=== PATIENT | male | born 1975 | race Caucasian/White ===

== ENCOUNTER 2016-02-15 21:18 | Emergency (ER) | payer OTHER ==
[~2016-02-15] VITALS: Ht 175.3 cm; Wt 81.5 kg
[~2016-02-15 21:18] MED LIST: NYST1000 PO; ONDA4TAB8 PO; ORA20G7 BU; PHEN-537 PO
[2016-02-15 21:20] VITALS: Ht 175.3 cm; Wt 81.5 kg
[2016-02-15 22:45] LABS: URINE BLOOD (Dip) POC Trace-lysed (NEGATIVE)
[2016-02-15] MEDS ORDERED: CLOT30CR24 TOP (23:25)
[2016-02-15] MEDS ORDERED: FLUC150T17 PO (23:25)
--- NOTE | 2016-02-15 23:32 | ERD ---
ER Documentation Chief Complaint Date/Time DATE: 02/15/16 TIME: 23:28 Chief Complaint dysuria x 2 weeks, on ABT but denies improvement HPI 40-year-old male presents to emergency department for complaints of dysuria for the last 2 weeks already, patient was seen by primary care doctor 4 days ago, was given prescription for antibiotics, Bactrim DS to help with the symptoms but it has not been helping. Patient describes the pain upon urination as sharp pain mostly on the tip of the penile area. Patient did not notice some penile discharge. Patient does not have any new sexual partner, is sexually active with for years already. Patient does not have any penile discharge. Patient does not have any flank pain. Patient does not have any abdominal pain. Patient does not have any gross hematuria. ROS All systems reviewed and are negative except as per history of present illness. Medications Home Meds Active Scripts Clotrimazole* (Clotrimazole* AF) 1% - 30 Gm Cream.gm., 1 APPLIC TOP BID for 7 Days, TUB Prov:CELIA PACHECO NP 02/15/16 Fluconazole* (Diflucan*) 150 Mg Tablet, 150 MG PO ONCE, #1 TAB Prov:CELIA PACHECO NP 02/15/16 Phenazopyridine Hcl* (Pyridium*) 100 Mg Tab, 100 MG PO TID, #15 TAB Prov:LULA OTTO PA-C 01/22/16 Benzocaine* (Orajel Maximum*) 1 Applic Gel, 1 APPLIC BU BID, #30 EA Prov:JOSE DEL RIO PA-C 10/05/14 Nystatin (Nystatin) 100,000 Unit/1 Ml Oral.susp, 4 ML PO QID for 2 Days, ML Prov:GUME STACK 10/03/14 Ondansetron Hcl* (Zofran*) 4 Mg Tablet, 4 MG PO Q6H for NAUSEA AND/OR VOMITING, #30 TAB Prov:GUME STACK 10/03/14 Allergies Allergies: Coded Allergies: No Known Allergy (Unverified , 06/09/14) PMhx/Soc Medical and Surgical Hx: pt denies Medical Hx, pt denies Surgical Hx History of Surgery: No Anesthesia Reaction: No Hx Neurological Disorder: No Hx Respiratory Disorders: No Hx Cardiac Disorders: No Hx Psychiatric Problems: No Hx Miscellaneous Medical Probl: No Hx Alcohol Use: Yes (OCC) Hx Substance Use: No Hx Tobacco Use: No Smoking Status: Never smoker FmHx Family History: No coronary disease, No diabetes, No other Physical Exam Vitals Vital Signs Date Time Temp Pulse Resp B/P Pulse Ox O2 Delivery O2 Flow Rate FiO2 02/15/16 21:20 97.9 102 20 134/92 99 Physical Exam GENERAL: The patient is well developed and appropriate for usual state of health, in no apparent distress. CHEST: Clear to auscultation bilaterally. There are no rales, wheezes or rhonchi. HEART: Regular rate and rhythm. No murmurs, clicks, rubs or gallops. No S3 or S4. ABDOMEN: Soft, nontender and nondistended. Good bowel sounds. No rebound or guarding. No gross peritonitis. No gross organomegaly or masses. No Castañeda sign or McBurney point tenderness. BACK: No midline or flank tenderness. EXTREMITIES: Equal pulses bilaterally. There is no peripheral clubbing, cyanosis or edema. No focal swelling or erythema. Full range of motion. Grossly neurovascularly intact. NEURO: Alert and oriented. Cranial nerves 2-12 intact. Motor strength in all 4 extremities with 5/5 strength. Sensation grossly intact. Normal speech and gait. SKIN: There is no apparent rash or petechia. The skin is warm and dry. HEMATOLOGIC AND LYMPHATIC: There is no evidence of excessive bruising or lymphedema. No gross cervical, axillary, or inguinal lymphadenopathy. : Noted some tenderness on palpation on the tip of the penile area, no penile discharge noted, no scrotal swelling, scrotal tenderness or scrotal redness noted. No lesions noted. Results 24 hrs Laboratory Tests Test 02/15/16 22:44 Bedside Urine Blood Trace-lysed Bedside Urine Glucose (UA) Negative Bedside Urine Ketones (LAB) Negative Bedside Urine Leukocyte Esterase (L Negative Bedside Urine Nitrite (LAB) Negative Bedside Urine Protein (LAB) Negative Bedside Urine pH (LAB) 7.0 Urine GC chlamydia was sent. Procedures/MDM Medical decision making: Patient's dysuria is nonspecific at this time there is some redness on the tip of the penile area. It consistent with balanitis, can be causing the dysuria also. Patient's urine test shows trace of blood, does not have any leukocytes, urine culture was sent to the laboratory. GC chlamydia testing was sent for further evaluation of symptoms. Patient was advised to see a urologist specialist if this continues to persist. Patient was given for Diflucan, clotrimazole, is advised to continue taking the Bactrim DS given to him by , patient is advised to return to emergency department for any worsening symptoms. Departure Diagnosis: Primary Impression: Balanitis Condition: Stable Patient Instructions: Balanitis, Dysuria, Uncertain Cause (Adult) CELIA PACHECO NP Feb 15, 2016 23:32
== END 2016-02-15 23:43 | disposition home or self-care (01) ==
LOC: FTE 21:18
DX: N48.1 Balanitis (principal)
CPT/HCPCS: 81003; 87086; 87591; Z7502; 99283

== ENCOUNTER 2016-05-09 09:44 | Emergency (ER) | payer OTHER ==
[~2016-05-09] VITALS: Ht 177.8 cm; Wt 81.5 kg
[~2016-05-09 09:44] MED LIST changes: +CLOT30CR24 TOP; +FLUC150T17 PO
[2016-05-09 10:06] VITALS: Ht 177.8 cm; Wt 81.5 kg
--- NOTE | 2016-05-09 11:18 | ERD ---
ER Documentation Chief Complaint Date/Time DATE: 05/09/16 TIME: 11:10 Chief Complaint ear pain/pressure x 2 days HPI 40-year-old male presents the emergency department for bilateral ear pain and pressure 2 days. Patient states he has had this problem before and has chronic tinnitus. Patient states in the last 2 days he has had increased tinnitus and pressure to bilateral ears. Patient is unsure if he has an infection. No fevers. No otorrhea. No cough, sore throat, chest pain or difficulty breathing. 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 Patient has been to his primary care provider and ENT for chronic ear pressure and tinnitus. Patient believes he has an upcoming appointment with ENT. Patient states he is having some increased anxiety. Patient states he has increased stress from being out of work. At times he is having difficulty breathing and chest pressure. Currently denies any chest pressure, heart palpitations, labored breathing. Patient states he has a history of hypertension but was told to increase exercise and reduce salt in his diet for treatment. Patient is not currently taking any medications for this. ROS All systems reviewed and are negative except as per history of present illness. Medications Home Meds Active Scripts Clotrimazole* (Clotrimazole* AF) 1% - 30 Gm Cream.gm., 1 APPLIC TOP BID for 7 Days, TUB Prov:CELIA PACHECO NP 02/15/16 Fluconazole* (Diflucan*) 150 Mg Tablet, 150 MG PO ONCE, #1 TAB Prov:CELIA PACHECO NP 02/15/16 Phenazopyridine Hcl* (Pyridium*) 100 Mg Tab, 100 MG PO TID, #15 TAB Prov:LULA OTTO PA-C 01/22/16 Benzocaine* (Orajel Maximum*) 1 Applic Gel, 1 APPLIC BU BID, #30 EA Prov:JOSE DEL RIO PA-C 10/05/14 Nystatin (Nystatin) 100,000 Unit/1 Ml Oral.susp, 4 ML PO QID for 2 Days, ML Prov:GUME STACK 10/03/14 Ondansetron Hcl* (Zofran*) 4 Mg Tablet, 4 MG PO Q6H for NAUSEA AND/OR VOMITING, #30 TAB Prov:GUME STACK 10/03/14 Allergies Allergies: Coded Allergies: No Known Allergy (Unverified , 06/09/14) PMhx/Soc History of Surgery: No Anesthesia Reaction: No Hx Neurological Disorder: No Hx Respiratory Disorders: No Hx Cardiac Disorders: No Hx Psychiatric Problems: No Hx Miscellaneous Medical Probl: No Hx Alcohol Use: Yes (OCC) Hx Substance Use: No Hx Tobacco Use: No Physical Exam Vitals Vital Signs Date Time Temp Pulse Resp B/P Pulse Ox O2 Delivery O2 Flow Rate FiO2 05/09/16 10:06 97.8 100 18 135/90 99 Physical Exam Const: alert, oriented to person, place and time Head: Atraumatic Eyes: Normal Conjunctiva ENT: Normal External Ears, Nose and Mouth. Neck: Full range of motion..~ No meningismus. Resp: Clear to auscultation bilaterally Cardio: Regular rate and rhythm, no murmurs Abd: Soft, non tender, non distended. Normal bowel sounds Skin: No petechiae or rashes Back: No midline or flank tenderness Ext: No cyanosis, or edema Neur: Awake and alert Psych: Normal Mood and Affect Procedures/MDM ED COURSE: The patient was stable throughout ED course. I kept the patient and/or family informed of laboratory and diagnostic imaging results throughout the ED course. Imaging Chest x-ray Patient: JOS BLANK : 1975 Age: 40 Sex: M MR #: [id number] DOS: 05/09/16 1035 Ordering MD: SARAH FOX NP Location: [facility] Room/Bed: PROCEDURE: XR Chest AP portable CLINICAL INDICATION: Chest tightness TECHNIQUE: An AP portable radiograph of the chest was submitted. COMPARISON: None. FINDINGS: Support Hardware: None Cardiovascular: The cardiovascular silhouette appears unremarkable. Lung Senior: The lung senior appear clear with no nodule, alveolar infiltrate, or interstitial prominence evident. Pleural Spaces: No pneumothorax or pleural effusion is identified. Osseous Structures: The osseous structures appear intact. Soft Tissues: The soft tissues appear unremarkable. IMPRESSION: Unremarkable portable chest. EKG: Rate/Rhythm: Normal Sinus Rhythm with heart rate 82 bpm QRS, ST, T-waves: No changes consistent w/ acute ischemia Impression: No evidence of ischemia or arrhythmia MDM: 40-year-old male presents emergency department for bilateral ear pain and pressure 2 days. Patient has chronic history of tinnitus and has been seen by his primary care provider and ENT specialist for this. On exam TMs are normal. No erythema or bulging of tympanic membranes. No otorrhea. No fevers. Remained afebrile throughout ED visit. Patient states he has had increased stress and feels anxious at times. Patient has some chest pressure and shortness of breath at times. Patient self reports feeling more anxious. No neuro deficits. Remains hemodynamically stable. Vital signs are stable. Currently denies chest pain, chest pressure, shortness of breath, difficulty breathing or heart palpitations. Low suspicion for acute ME, pulmonary embolism, pneumothorax, CVA, TIA, otitis media or otitis externa. Patient likely has tinnitus, chest pressure and anxiety. Patient is appropriate for outpatient management and instructed to follow-up with me care provider in the next 24-48 hours for reassessment and additional management. Return to ED for any high fever, chest pain, difficulty breathing, shortness breath, wheezing, vomiting, diarrhea, abdominal pain or any new or worsening symptoms. Patient verbalizes understanding. All questions answered at discharge. Departure Diagnosis: Primary Impression: Tinnitus Laterality: bilateral Qualified Code: H93.13 - Tinnitus, bilateral Additional Impressions: Chest pressure Anxiety Condition: Stable SARAH FOX NP May 09, 2016 11:18
--- NOTE | 2016-05-09 11:52 | RADRPT ---
PROCEDURE: XR Chest AP portable CLINICAL INDICATION: Chest tightness TECHNIQUE: An AP portable radiograph of the chest was submitted. COMPARISON: None. FINDINGS: Support Hardware: None Cardiovascular: The cardiovascular silhouette appears unremarkable. Lung Melara: The lung melara appear clear with no nodule, alveolar infiltrate, or interstitial promi nence evident. Pleural Spaces: No pneumothorax or pleural effusion is identified. Osseous Structures: The osseous structures appear intact. Soft Tissues: The soft tissues appear unremarkable. IMPRESSION: Unremarkable portable chest. Physician Shagufta Date Time Electronically viewed and signed by Silvio Lambert Physician on 05/09/2016 11:52 /
== END 2016-05-09 12:44 | disposition home or self-care (01) ==
LOC: FTE 09:44
DX: H93.13 Tinnitus, bilateral (principal); R07.89 Other chest pain; F41.9 Anxiety disorder, unspecified
CPT/HCPCS: 71010; 93005; Z7502

== ENCOUNTER 2016-12-06 17:28 | Emergency (ER) | payer OTHER ==
[~2016-12-06] VITALS: Ht 175.3 cm; Wt 82.0 kg
[2016-12-06 17:50] VITALS: Ht 175.3 cm; Wt 82.0 kg
[2016-12-06 20:47] LABS: BASOPHILS % 0.6 % (0.0-2.0); EOSINOPHILS % 0.3 % (0.0-7.0); HEMATOCRIT 42.8 % (42.0-52.0); HEMOGLOBIN 13.9 g/dl (14.0-18.0); LYMPHOCYTES # 2.4 10^3/ul (0.8-2.9); LYMPHOCYTES % 33.1 % (15.0-51.0); MEAN CORPUSCULAR HGB CONC 32.5 g/dl (32.0-37.0); MEAN CORPUSCULAR VOLUME 89.2 fl (82.0-101.0); MEAN PLATELET VOLUME 10.5 fl (7.4-10.4); MONOCYTE # 0.5 10^3/ul (0.3-0.9); MONOCYTES % 6.6 % (0.0-11.0); NEUTROPHIL # 4.3 10^3/ul (1.6-7.5); NEUTROPHILS % 59.1 % (39.0-77.0); PLATELET COUNT 278 10^3/UL (140-415); RED CELL DISTRIBUTION WIDTH 13.1 % (11.5-14.5); WHITE BLOOD COUNT 7.2 10^3/ul (4.8-10.8)
[2016-12-06 20:56] LABS: ADD UMIC NO; UR ASCORBIC ACID NEGATIVE (NEGATIVE); UR BILIRUBIN (Dip) NEGATIVE (NEGATIVE); UR BLOOD (Dip) NEGATIVE (NEGATIVE); UR CLARITY CLEAR (CLEAR); UR COLOR YELLOW (YELLOW); UR GLUCOSE (Dip) NEGATIVE (NEGATIVE); UR KETONES (Dip) 1+ mg/dL (NEGATIVE); UR LEUKOCYTE ESTERASE (Dip) NEGATIVE Leu/ul (NEGATIVE); UR NITRITE (Dip) NEGATIVE (NEGATIVE); UR SPECIFIC GRAVITY (Dip) 1.016 (1.003-1.030); UR TOTAL PROTEIN (Dip) NEGATIVE (NEGATIVE); UR UROBILINOGEN (Dip) NEGATIVE (NEGATIVE)
[2016-12-06 21:13] LABS: ALANINE AMINOTRANSFERASE 40 IU/L (13-69); ALBUMIN 4.8 g/dl (3.3-4.9); ALBUMIN/GLOBULIN RATIO 1.26; ALKALINE PHOSPHATASE 82 IU/L (42-121); ANION GAP 15 (8-16); ASPARTATE AMINO TRANSFERASE 26 IU/L (15-46); BILIRUBIN,INDIRECT 0.5 mg/dl (0-1.1); BILIRUBIN,TOTAL 0.5 mg/dl (0.2-1.3); BLOOD UREA NITROGEN 14 mg/dl (7-20); CALCIUM 9.6 mg/dl (8.4-10.2); CARBON DIOXIDE 28 mmol/L (21-31); CHLORIDE 105 mmol/L (97-110); CREATININE 0.78 mg/dl (0.61-1.24); GLUCOSE 96 mg/dl (70-220); POTASSIUM 3.4 mmol/L (3.5-5.1); SODIUM 145 mmol/L (135-144); TOTAL PROTEIN 8.6 g/dl (6.1-8.1)
[2016-12-06 21:23] LABS: TROPONIN-I < 0.012 ng/ml (0.00-0.12)
[2016-12-06] MEDS ORDERED: MELA1TAB9 PO (21:27)
[2016-12-06] MEDS ORDERED: LORA-441 PO (21:27)
[2016-12-06 21:38] VITALS: BP 167/91; PULSE 89; RESP 20
--- NOTE | 2016-12-06 21:42 | ERD ---
ER Documentation Chief Complaint Chief Complaint dizziness x 2 days HPI 40-year-old otherwise healthy male presents emergency department for complaints of dizziness 2 days. Patient states that he has been experiencing high amounts of stress due to his job and has been feeling anxious at home. He states that he wakes up multiple times during the night and is unable to go back to sleep. He states he was concerned regarding his blood pressure so he bought a blood pressure machine yesterday and has been measuring it for the past 2 days and notes high and low readings. He describes his dizziness as light headedness. He denies headache or head injury, recent illness, fever, chills, nausea, vomiting, diarrhea, polydipsia or polyuria. He denies chest pain, shortness of breath. ROS All systems reviewed and are negative except as per history of present illness. Medications Home Meds Active Scripts Melatonin-Pyridoxine Hcl (Melatonin) 1-10 Mg Tablet, 1 TAB PO HS for 7 Days, TAB Prov:EVELYN ROSS PA-C 12/06/16 Lorazepam* (Ativan*) 0.5 Mg Tablet, 0.5 MG PO Q8, #20 TAB Prov:EVELYN ROSS PA-C 12/06/16 Clotrimazole* (Clotrimazole* AF) 1% - 30 Gm Cream.gm., 1 APPLIC TOP BID for 7 Days, TUB Prov:ECLIA PACHECO NP 02/15/16 Fluconazole* (Diflucan*) 150 Mg Tablet, 150 MG PO ONCE, #1 TAB Prov:CELIA PACHECO NP 02/15/16 Phenazopyridine Hcl* (Pyridium*) 100 Mg Tab, 100 MG PO TID, #15 TAB Prov:LULA OTTO PA-C 01/22/16 Benzocaine* (Orajel Maximum*) 1 Applic Gel, 1 APPLIC BU BID, #30 EA Prov:JOSE DEL RIO PA-C 10/05/14 Nystatin (Nystatin) 100,000 Unit/1 Ml Oral.susp, 4 ML PO QID for 2 Days, ML Prov:GUME STACK 10/03/14 Ondansetron Hcl* (Zofran*) 4 Mg Tablet, 4 MG PO Q6H for NAUSEA AND/OR VOMITING, #30 TAB Prov:GUME STACK 10/03/14 Allergies Allergies: Coded Allergies: No Known Allergy (Unverified , 06/09/14) PMhx/Soc History of Surgery: Yes (Bilat bunion X 2 yrs) Anesthesia Reaction: No Hx Neurological Disorder: No Hx Respiratory Disorders: No Hx Cardiac Disorders: No Hx Psychiatric Problems: Yes (Anxiety) Hx Miscellaneous Medical Probl: No Hx Alcohol Use: Yes (OCC) Hx Substance Use: No Hx Tobacco Use: No Smoking Status: Never smoker Physical Exam Vitals Vital Signs Date Time Temp Pulse Resp B/P Pulse Ox O2 Delivery O2 Flow Rate FiO2 12/06/16 17:50 98.5 95 18 173/96 98 Physical Exam Const: Well-developed, well-nourished, no acute distress Head: Atraumatic Eyes: Normal Conjunctiva ENT: Normal External Ears, Nose and Mouth. Neck: Full range of motion..~ No meningismus. Resp: Clear to auscultation bilaterally Cardio: Regular rate and rhythm, no murmurs Abd: Soft, non tender, non distended. Normal bowel sounds Skin: No petechiae or rashes Back: No midline or flank tenderness Ext: No cyanosis, or edema Neur: Cranial nerves II through XII intact. PERRLA. EOMI. Finger to nose intact. No pronator drift. Awake and alert Psych: Normal Mood and Affect Result Diagram: 12/06/16202812/06/162028 Results 24 hrs Laboratory Tests Test 12/06/16 20:29 12/06/16 20:41 White Blood Count 7.210^3/ul Red Blood Count 4.8010^6/ul Hemoglobin 13.9g/dl Hematocrit 42.8% Mean Corpuscular Volume 89.2fl Mean Corpuscular Hemoglobin 29.0pg Mean Corpuscular Hemoglobin Concent 32.5g/dl Red Cell Distribution Width 13.1% Platelet Count 41821^3/UL Mean Platelet Volume 10.5fl Neutrophils % 59.1% Lymphocytes % 33.1% Monocytes % 6.6% Eosinophils % 0.3% Basophils % 0.6% Nucleated Red Blood Cells % 0.0/100WBC Neutrophils # 4.310^3/ul Lymphocytes # 2.410^3/ul Monocytes # 0.510^3/ul Eosinophils # 0.010^3/ul Basophils # 0.010^3/ul Nucleated Red Blood Cells # 0.010^3/ul Sodium Level 145mmol/L Potassium Level 3.4mmol/L Chloride Level 105mmol/L Carbon Dioxide Level 28mmol/L Anion Gap 15 Blood Urea Nitrogen 14mg/dl Creatinine 0.78mg/dl Glucose Level 96mg/dl Calcium Level 9.6mg/dl Total Bilirubin 0.5mg/dl Direct Bilirubin 0.00mg/dl Indirect Bilirubin 0.5mg/dl Aspartate Amino Transf (AST/SGOT) 26IU/L Alanine Aminotransferase (ALT/SGPT) 40IU/L Alkaline Phosphatase 82IU/L Troponin I < 0.012ng/ml Total Protein 8.6g/dl Albumin 4.8g/dl Globulin 3.80g/dl Albumin/Globulin Ratio 1.26 Urine Color YELLOW Urine Clarity CLEAR Urine pH 6.0 Urine Specific [place] 1.016 Urine Ketones 1+mg/dL Urine Nitrite NEGATIVEmg/dL Urine Bilirubin NEGATIVEmg/dL Urine Urobilinogen NEGATIVEmg/dL Urine Leukocyte Esterase NEGATIVELeu/ul Urine Hemoglobin NEGATIVEmg/dL Urine Glucose NEGATIVEmg/dL Urine Total Protein NEGATIVEmg/dl Procedures/MDM 40-year-old otherwise healthy male presents the emergency department for complaints of dizziness described as lightheadedness, anxious feelings, difficulty sleeping and increased stress at work. Upon arrival, patient nontoxic appearing and in no acute distress. Vital signs reviewed. Patient afebrile, not tachycardic and not hypoxic. Patient's blood pressure was elevated (>120/80) but appears stable without evidence of hypertension emergency or urgency. The patient was counseled about the risks of hypertension and urged to pursue outpatient monitoring and therapy within a week with their primary care physician. He denied any complaint of chest pain, shortness of breath or headache. Physical exam is unremarkable. CBC showed no evidence of systemic infection or severe anemia. CMP showed no evidence of severe electrolyte abnormalities, severe acidosis, alkalosis, renal failure, or liver disease. Patient with evidence of borderline dehydration. UA showed no evidence of acute infection or hematuria. Troponin negative EKG: Rate/Rhythm: Normal Sinus Rhythm QRS, ST, T-waves: No changes consistent w/ acute ischemia Impression: No evidence of ischemia or arrhythmia Based on the patient's history, physical and laboratory workup, his lightheadedness is likely due to decreased sleep versus dehydration versus stress reaction. At this time low suspicion for acute coronary syndrome, hypertensive urgency, hyperglycemia, dysrhythmia, DVT, PE, or intracranial process. The patient does not exhibit any clinical signs or symptoms, and has no risk factors to suggest headache etiology such as subarachnoid hemorrhage, acute vertebral or carotid dissection, intracranial mass, epidural, subdural hematoma, dural venous sinus thrombosis, giant cell arteritis, or pseudotumor cerebri. I will be providing him with instructions on relieving stress. I recommended for him to follow-up with his primary care provider in 1-2 days. Patient agrees with plan. Based on patient's history of present illness and physical examination the decision was made to discharge. The patient was re-evaluated after ED treatment and stabilizing measures, and symptoms have improved. There is no evidence of life threatening injuries or illnesses at this time. On re-examination, patient resting in no distress, stable vital signs, reports feeling better and safe for discharge with outpatient follow up with PMD in 1-2 days. Patient given return precautions. Departure Diagnosis: Primary Impression: Dizziness, nonspecific Condition: Good Patient Instructions: Stress Relief: Relaxation, Stress Relief: A Positive Lifestyle Additional Instructions: Call your primary care doctor TOMORROW for an appointment during the next 1-2 days.See the doctor sooner or return here if your condition worsens before your appointment time. EVELYN ROSS PA-C Dec 06, 2016 21:39
== END 2016-12-06 21:39 | disposition home or self-care (01) ==
LOC: FTE 17:28
DX: R42 Dizziness and giddiness (principal)
CPT/HCPCS: 36415; 80053; 81003; 84484; 85025; 93005; Z7502

== ENCOUNTER 2017-03-14 08:44 | Emergency (ER) | END 2017-03-14 11:03 | disposition home or self-care (01) ==

== ENCOUNTER 2017-05-02 19:50 | Emergency (ER) | END 2017-05-02 20:54 | disposition home or self-care (01) ==

== ENCOUNTER 2018-02-25 07:27 | Emergency (ER) | payer OTHER ==
[~2018-02-25] VITALS: Ht 175.3 cm; Wt 80.0 kg
[~2018-02-25 07:27] MED LIST changes: +FLUC150T PO; -FLUC150T17 PO; +HYDR-843 PO; +LORA-441 PO; +MECL-77 PO; +MELA1TAB9 PO; +PRED20TA PO; +[UNRECOGNIZED DRUG - CODE] TP
[2018-02-25 07:31] VITALS: BP 154/78; PULSE 100; RESP 20; Ht 175.3 cm; Wt 80.0 kg
[2018-02-25] MEDS ORDERED: MED4DP PO (08:52)
[2018-02-25] MEDS ORDERED: NAPR-985 PO (08:52)
[2018-02-25] MEDS ORDERED: DEXAMETHASONE 10 MG/ML 1 ML INJ IM ONE (09:00)
--- NOTE | 2018-02-25 09:40 | ERD ---
ER Documentation Chief Complaint Chief Complaint pt bib self with c/o back pain for weeks, doing repeative movements at work HPI 42-year-old male presenting with back pain and spasms. Patient states that he works at [employer] and his pain is worse with stretching and movement. He denies any rash. He states this is been going on for about 6-7 weeks. Has not taken medications for symptoms. Denies any numbness. Medical history of hypertensi on. Allergy to penicillin. Surgical history of bunion surgery. Social history denies ROS All systems reviewed and are negative except as per history of present illness. Medications Home Meds Active Scripts Naproxen* (Naprosyn*) 500 Mg Tablet, 500 MG PO BID PRN for PAIN AND/OR INFLAMMATION, #30 TAB Prov:JOSE DEL RIO PA-C 02/25/18 Methylprednisolone* (Medrol* DOSE PACK) 4 Mg/Dose-Pack Tab.ds.pk, 4 MG PO . DIRECTED, #1 PACKET Prov:JOSE DEL RIO PA-C 02/25/18 Hydroxyzine Hcl* (Hydroxyzine Hcl*) 25 Mg Tablet, 25 MG PO Q8H PRN for ITCHING, #30 TAB Prov:CELIA PACHECO NP 05/02/17 Hydrocortisone (Cortizone-10) 57 Gm Oint..gm., 57 GM TP BID, #1 TUB Prov:CELIA PACHECO NP 05/02/17 Prednisone* (Prednisone*) 20 Mg Tab, 60 MG PO DAILY for 5 Days, TAB Prov:CELIA PAHCECO NP 05/02/17 Meclizine Hcl* (Meclizine Hcl*) 25 Mg Tablet, 25 MG PO Q8H PRN for DIZZINESS, #15 TAB Prov:TALIB FREEMAN MD 03/14/17 Lorazepam* (Ativan*) 0.5 Mg Tablet, 0.5 MG PO Q8, #10 TAB Prov:TALIB FREEMAN MD 03/14/17 Melatonin-Pyridoxine Hcl (Melatonin) 1-10 Mg Tablet, 1 TAB PO HS for 7 Days, TAB Prov:EVELYN ROSS PA-C 12/06/16 Lorazepam* (Ativan*) 0.5 Mg Tablet, 0.5 MG PO Q8, #20 TAB Prov:EVELYN ROSSC 12/06/16 Clotrimazole* (Clotrimazole* AF) 1% - 30 Gm Cream.gm., 1 APPLIC TOP BID for 7 Days, TUB Prov:CELIA PACHECO [employer] 02/15/16 Fluconazole* (Diflucan*) 150 Mg Tablet, 150 MG PO ONCE, #1 TAB Prov:CELIA PACHECO [employer] 02/15/16 Phenazopyridine Hcl* (Pyridium*) 100 Mg Tab, 100 MG PO TID, #15 TAB Prov:LULA OTTOC 01/22/16 Benzocaine* (Orajel Maximum*) 1 Applic Gel, 1 APPLIC BU BID, #30 EA Prov:JOSE DEL RIOC 10/05/14 Nystatin (Nystatin) 100,000 Unit/1 Ml Oral.susp, 4 ML PO QID for 2 Days, ML Prov:GUME STACK 10/03/14 Ondansetron Hcl* (Zofran*) 4 Mg Tablet, 4 MG PO Q6H for NAUSEA AND/OR VOMITING, #30 TAB Prov:GUME STACK 10/03/14 Allergies Allergies: Coded Allergies: No Known Allergy (Unverified , 06/09/14) PMhx/Soc History of Surgery: Yes (Bilat bunion X 2 yrs) Anesthesia Reaction: No Hx Neurological Disorder: No Hx Respiratory Disorders: No Hx Cardiac Disorders: No Hx Psychiatric Problems: Yes (Anxiety) Hx Miscellaneous Medical Probl: No Hx Alcohol Use: Yes (OCC) Hx Substance Use: No Hx Tobacco Use: No FmHx Family History: No diabetes, No coronary disease, No other Physical Exam Vitals Vital Signs Date Temp Pulse Resp B/P (MAP) Pulse Ox O2 O2 Flow FiO2 Time Delivery Rate 02/25/18 97.3 100 20 154/78 99 07:31 (103) Physical Exam GENERAL: The patient is well-appearing, well-nourished, in no acute distress CHEST: Clear to auscultation bilaterally. There are no rales, wheezes or rhonchi. HEART: Regular rate and rhythm. No murmurs, clicks, rubs or gallops. No S3 or S4. BACK: No midline or flank tenderness. Mild tenderness palpation along paraspino us muscles with no obvious tenderness along the midline spine. EXTREMITIES: Equal pulses bilaterally. There is no peripheral clubbing, cyanosis or edema. No focal swelling or erythema. Full range of motion. Grossly neurovascularly intact. NEUROLOGIC: Alert and oriented. Cranial nerves II through XII intact. Motor strength in all 4 extremities with 5 out of 5 strength. Sensation grossly intact. Normal speech and gait. Babinski negative. DTR 2+ throughout. SKIN: There is no apparent rash or petechiae. The skin is warm and dry. Results 24 hrs Current Medications Medications Dose Sig/Roldan Start Time Status Last (Trade) Ordered Route PRN Stop Time Admin Dose Reason Admin 10 mg ONCE ONCE 02/25/18 DC 02/25/18 Dexamethasone IM 09:00 09:00 (Decadron) 02/25/18 09:01 Procedures/MDM ER course: Decadron given in ED. MDM: 42-year-old male presenting with paresthesias along back. I have low suspicion for shingles. I have low suspicion for bone injury. Patient is discharged with supportive medications. Patient is told to change or worsen to immediately return to the ER. All questions answered at discharge Departure Diagnosis: Primary Impression: Back pain Condition: Stable Patient Instructions: Back Pain (Acute Or Chronic) Referrals: [facility] YOU HAVE RECEIVED A MEDICAL SCREENING EXAM AND THE RESULTS INDICATE THAT YOU DO NOT HAVE A CONDITION THAT REQUIRES URGENT TREATMENT IN THE EMERGENCY DEPARTMENT. FURTHER EVALUATION AND TREATMENT OF YOUR CONDITION CAN WAIT UNTIL YOU ARE SEEN IN YOUR DOCTORS OFFICE WITHIN THE NEXT 1-2 DAYS. IT IS YOUR RESPONSIBILITY TO MAKE AN APPOINTMENT FOR FOLOW-UP CARE. IF YOU HAVE A PRIMARY DOCTOR --you should call your primary doctor and schedule an appointment IF YOU DO NOT HAVE A PRIMARY DOCTOR YOU CAN CALL OUR PHYSICIAN REFERRAL HOTLINE AT IF YOU CAN NOT AFFORD TO SEE A PHYSICIAN YOU CAN CHOSE FROM THE FOLLOWING [facility] [address] [facility] [address] [facility] [address] [facility] [address] [facility] [address] [facility]. [facility] [address] Additional Instructions: FOLLOW UP WITH YOUR PRIMARY CARE PHYSICIAN TOMORROW.Return to this facility if you are not improving as expected. JOSE DEL RIO PA-C Feb 25, 2018 09:40
== END 2018-02-25 09:19 | disposition home or self-care (01) ==
LOC: FTE 07:27
DX: M54.9 Dorsalgia, unspecified (principal)
CPT/HCPCS: 96372; J1100; Z7502

== ENCOUNTER 2018-09-23 08:11 | Emergency (ER) | payer OTHER ==
[~2018-09-23] VITALS: Ht 170.2 cm; Wt 83.0 kg
[~2018-09-23 08:11] MED LIST changes: +MAG-19 PO; +MED4DP PO; +NAPR-985 PO; +RANI150T35 PO
[2018-09-23 08:23] VITALS: BP 138/76; PULSE 94; RESP 18; Ht 170.2 cm; Wt 83.0 kg
[2018-09-23] MEDS ORDERED: FAMOTIDINE 20 MG TAB PO ONE (09:30)
[2018-09-23] MEDS ORDERED: LIDOCAINE/MYLANTA 40 ML BTL PO ONE (09:30)
--- NOTE | 2018-09-23 09:56 | ERD ---
ER Documentation Chief Complaint Chief Complaint EPIGASTRIC PAIN X 2 WKS HPI 42-year-old male presented to ED for burning sensation in his stomach and epigastric region x2 weeks. Patient rates the discomfort a 5 out of 10 and states it happened after he ate hot peppers. Patient denies any chest pain shortness of breath. Patient is not a smoker he has no history of diabetes he states his only past medical history is mild hypertension which she is taking medications for. Patient denies any diarrhea or back pain associated with the symptoms. Patient does admit he eats dinner around 9 PM and goes to sleep around 930 he states the symptoms are worse at night. ROS All systems reviewed and are negative except as per history of present illness. Medications Home Meds Active Scripts Magaldrate/Simethicone* (Mylanta*) 355 Ml Susp, 30 ML PO QID PRN for GASTROINTESTINAL UPSET, #1 BOTTLE Prov:CHARLES CORDOVA PA-C 09/23/18 Ranitidine Hcl* (Zantac*) 150 Mg Tablet, 150 MG PO BID PRN for EPIGASTRIC PAIN, #30 TAB Prov:CHARLES CORDOVA PA-C 09/23/18 Naproxen* (Naprosyn*) 500 Mg Tablet, 500 MG PO BID PRN for PAIN AND/OR INFLAMMATION, #30 TAB Prov:JOSE DEL RIO PA-C 02/25/18 Methylprednisolone* (Medrol* DOSE PACK) 4 Mg/Dose-Pack Tab.ds.pk, 4 MG PO . DIRECTED, #1 PACKET Prov:JOSE DEL RIO PA-C 02/25/18 Hydroxyzine Hcl* (Hydroxyzine Hcl*) 25 Mg Tablet, 25 MG PO Q8H PRN for ITCHING, #30 TAB Prov:CELIA PACHECO NP 05/02/17 Hydrocortisone (Cortizone-10) 57 Gm Oint..gm., 57 GM TP BID, #1 TUB Prov:CELIA PACHECO NP 05/02/17 Prednisone* (Prednisone*) 20 Mg Tab, 60 MG PO DAILY for 5 Days, TAB Prov:CELIA PACHECO NP 05/02/17 Meclizine Hcl* (Meclizine Hcl*) 25 Mg Tablet, 25 MG PO Q8H PRN for DIZZINESS, #15 TAB Prov:TALIB FREEMAN MD 03/14/17 Lorazepam* (Ativan*) 0.5 Mg Tablet, 0.5 MG PO Q8, #10 TAB Prov:TALIB FREEMAN MD 03/14/17 Melatonin-Pyridoxine Hcl (Melatonin) 1-10 Mg Tablet, 1 TAB PO HS for 7 Days, TAB Prov:EVELYN ROSS PA-C 12/06/16 Lorazepam* (Ativan*) 0.5 Mg Tablet, 0.5 MG PO Q8, #20 TAB Prov:EVELYN ROSS PA-C 12/06/16 Clotrimazole* (Clotrimazole* AF) 1% - 30 Gm Cream.gm., 1 APPLIC TOP BID for 7 Days, TUB Prov:CELIA PACHECO NP 02/15/16 Fluconazole* (Diflucan*) 150 Mg Tablet, 150 MG PO ONCE, #1 TAB Prov:CELIA PACHECO [employer] 02/15/16 Phenazopyridine Hcl* (Pyridium*) 100 Mg Tab, 100 MG PO TID, #15 TAB Prov:LULA OTTO PA-C 01/22/16 Benzocaine* (Orajel Maximum*) 1 Applic Gel, 1 APPLIC BU BID, #30 EA Prov:JOSE DEL RIO PA-C 10/05/14 Nystatin (Nystatin) 100,000 Unit/1 Ml Oral.susp, 4 ML PO QID for 2 Days, ML Prov:GUME STACK 10/03/14 Ondansetron Hcl* (Zofran*) 4 Mg Tablet, 4 MG PO Q6H for NAUSEA AND/OR VOMITING, #30 TAB Prov:GUME STACK 10/03/14 Allergies Allergies: Uncoded Allergies: PENICILLIN (Allergy, Unknown, vomiting, 09/23/18) PMhx/Soc History of Surgery: Yes (Bilat bunion X 2 yrs) Anesthesia Reaction: No Hx Neurological Disorder: No Hx Respiratory Disorders: No Hx Cardiac Disorders: No Hx Psychiatric Problems: Yes (Anxiety) Hx Miscellaneous Medical Probl: No Hx Alcohol Use: Yes (OCC) Hx Substance Use: No Hx Tobacco Use: No Smoking Status: [facility] Family History: No diabetes, No coronary disease, No other Physical Exam Vitals Vital Signs Date Temp Pulse Resp B/P (MAP) Pulse Ox O2 O2 Flow FiO2 Time Delivery Rate 09/23/18 97.1 94 18 138/76 98 08:23 (96) Physical Exam GENERAL: Mild distress HEENT: Atraumatic. Conjunctivae are pink. Pupils equal, round, and reactive to light. There is no scleral icterus. Tympanic membranes clear bilaterally. Oropharynx clear. No nystagmus or photophobia. NECK: C-spine is soft and supple. There is no meningismus. There is no cervical lymphadenopathy. CHEST: Clear to auscultation bilaterally. There are no rales, wheezes or rhonchi. HEART: Regular rate and rhythm. No murmurs, clicks, rubs or gallops. ABDOMEN:Soft, nontender and nondistended. Good bowel sounds. No rebound or guarding. No gross peritonitis. No gross organomegaly or masses. No Castañeda sign or McBurney point tenderness. BACK: No midline or flank tenderness. Results 24 hrs Current Medications Medications Dose Sig/Roldan Start Time Status Last (Trade) Ordered Route PRN Stop Time Admin Dose Reason Admin 40 ml ONCE ONCE 09/23/18 DC 09/23/18 Miscellaneous PO 09:30 09:15 Medication 09/23/18 09:30 (Gi Cocktail (2)) Famotidine 20 mg ONCE ONCE 09/23/18 DC 09/23/18 (Pepcid) PO 09:30 09:15 09/23/18 09:30 Procedures/MDM ED course: The patient was stable throughout the ED course. The patient and/or family informed of laboratory and diagnostic imaging results throughout the ED course. Medications given in ER: Pepcid GI cocktail Patient tolerated medication well with no adverse reactions. Patient reported improvement in pain. Medical decision makin-year-old male presenting to the ED for epigastric pain x2 weeks. Patient states his symptoms began after he was eating a lot of hot peppers. Patient states that he did have some alcohol with a hot peppers and since then he has been experiencing bloating, burning sensation in his stomach and chest. Patient has no shortness of breath no chest pain and is not a smoker. Patient states he has tried at home Pepcid which has helped a little with the symptoms. Patient's physical exam was unremarkable. Lung sounds were clear bilateral patient had good S1-S2 sounds he has no history of diarrhea or recent weight loss nausea or vomiting. Patient was given Pepcid and a GI cocktail in the ED and upon reevaluation 30 minutes later he appears to be doing much better states the symptoms have resided. I counseled the patient on dietary lifestyle changes and advised the patient he should follow-up with his primary care provider in 1 to 2 days regarding this visit. Advised the patient if symptoms worsen return to ER immediately. All questions were answered upon discharge and patient is in agreement treatment plan Prescription for home: Zantac Mylanta I have discussed with the patient proper use and common side effects to expert with the medication . I advised the patient/family to speak with the pharmacist dispensing the medication to be advised of any potential drug inter actions with other medication or supplements they may be taking. Discharge: At this time, patient is stable for discharge and outpatient management. I have instructed the patient to follow-up with his\her primary care physician in 1 to 2 days. I have discussed with the patient the possibility of needing to see a specialist for further work-up and imaging studies if symptoms persist. I have instructed the patient to promptly return to the ER for any new or worsening symptoms including increased pain, fever, nausea, vomiting, weakness or LOC. The patient and\or family expressed understanding of and agreement with this plan. All questions were answered. Home care instructions were provided. Disclaimer: Inadvertent spelling and grammatical errors are likely due to EHR\dictation software use and do not reflect on the overall quality of patient care. Also, please note that the electronic time recorded on the note does not necessarily reflect the actual time of the patient encounter. Departure Diagnosis: Primary Impression: GERD (gastroesophageal reflux disease) Esophagitis presence: without esophagitis Qualified Codes: K21.9 - Gastro- esophageal reflux disease without esophagitis Condition: Stable Patient Instructions: Gerd (Adult) Referrals: SHIRA FROST MD, NAGARAJ M MD [facility] YOU HAVE RECEIVED A MEDICAL SCREENING EXAM AND THE RESULTS INDICATE THAT YOU DO NOT HAVE A CONDITION THAT REQUIRES URGENT TREATMENT IN THE EMERGENCY DEPARTMENT. FURTHER EVALUATION AND TREATMENT OF YOUR CONDITION CAN WAIT UNTIL YOU ARE SEEN IN YOUR DOCTORS OFFICE WITHIN THE NEXT 1-2 DAYS. IT IS YOUR RESPONSIBILITY TO MAKE AN APPOINTMENT FOR FOLOW-UP CARE. IF YOU HAVE A PRIMARY DOCTOR --you should call your primary doctor and schedule an appointment IF YOU DO NOT HAVE A PRIMARY DOCTOR YOU CAN CALL OUR PHYSICIAN REFERRAL HOTLINE AT IF YOU CAN NOT AFFORD TO SEE A PHYSICIAN YOU CAN CHOSE FROM THE FOLLOWING [facility] [address] [facility] [address] [facility] [address] [facility] [address] [facility] [address] [facility]. [facility] [address] [facility]. [facility] YOU HAVE RECEIVED A MEDICAL SCREENING EXAM AND THE RESULTS INDICATE THAT YOU DO NOT HAVE A CONDITION THAT REQUIRES URGENT TREATMENT IN THE EMERGENCY DEPARTMENT. FURTHER EVALUATION AND TREATMENT OF YOUR CONDITION CAN WAIT UNTIL YOU ARE SEEN IN YOUR DOCTORS OFFICE WITHIN THE NEXT 1-2 DAYS. IT IS YOUR RESPONSIBILITY TO MAKE AN APPOINTMENT FOR FOLOW-UP CARE. IF YOU HAVE A PRIMARY DOCTOR --you should call your primary doctor and schedule and appointment IF YOU DO NOT HAVE A PRIMARY DOCTOR YOU CAN CALL OUR PHYSICIAN REFERRAL HOTLINE AT . IF YOU CAN NOT AFFORD TO SEE A PHYSICIAN YOU CAN CHOSE FROM THE FOLLOWING [facility]: [facility] [address] [place] [address] [facility] [address] [place] [address] [facility] [address] [place] [address] Additional Instructions: Call your primary care doctor TOMORROW for an appointment during the next 1-2 days.See the doctor sooner or return here if your condition worsens before your appointment time. CHARLES CORDOVA PA-C Sep 23, 2018 09:55
== END 2018-09-23 09:30 | disposition home or self-care (01) ==
LOC: FTE 08:11
DX: K21.9 Gastro-esophageal reflux disease without esophagitis (principal)
CPT/HCPCS: Z7502; Z7610; 99283